=== PATIENT | female | born 1985 | race Caucasian/White ===

== ENCOUNTER 2021-08-18 13:56 | Outpatient (CLI) | payer BC ==
[2021-08-18 15:18] LABS: Hemoglobin 11.9 g/dL (12.0-15.5); Mean Corpuscular HGB CONC 31.6 g/dL (32.0-36.0); Mean Corpuscular Hemoglobin 24.6 pg (27.0-33.0); Mean Corpuscular Volume 77.8 fl (81.6-98.3); Platelet Count 231 10x3/uL (150-450); RBC Distribution Width 14.3 % (11.5-14.5); Red Blood Cell (RBC) Count 4.83 10x6/uL (3.90-5.03); White Blood Cell (WBC) Count 6.4 10x3/uL (3.5-10.5)
[2021-08-18 15:39] LABS: Anion Gap 14 mmol/L (10-20); BUN (Urea Nitrogen) 12 mg/dL (7.0-18.7); Calc. Creatinine Clearance 0 mL/min (70-130); Calcium 9.1 mg/dL (7.8-10.44); Carbon Dioxide 25 mmol/L (22-29); Chloride 104 mmol/L (98-107); Estimated GFR 90; Glucose 108 mg/dL (70-105); Potassium 4.1 mmol/L (3.5-5.1); Sodium 139 mmol/L (136-145)
== END 2021-08-18 13:57 | disposition home or self-care (01) ==
LOC: CSHLAB 13:56
PROVIDERS: ATTEND Podiatrist Foot & Ankle Surgery
DX: Z01.812 Encounter for preprocedural laboratory examination (principal); Z20.822 Contact with and (suspected) exposure to COVID-19; M21.612 Bunion of left foot
CPT/HCPCS: 80048; 85027; 87811

== ENCOUNTER 2021-08-23 10:47 | Day surgery (SDC) | payer BC ==
[2021-08-17 11:39] VITALS: BMI 27.7
[2021-08-23] MEDS ORDERED: Lidocaine 1% MPF 2 ML VIAL ONE (12:15)
[2021-08-23] MEDS ORDERED: Bupivacaine PF 0.5% 30 ML VIAL ONE (13:09)
[2021-08-23] MEDS ORDERED: Neomycin-Polymyxin 1 ML AMP ONE (13:09)
[2021-08-23] MEDS ORDERED: Dexmedetomidine 200 MCG/2 ML VIAL ONE (13:27)
[2021-08-23] MEDS ORDERED: CEFAZOLIN 2 GM VIAL ONE (13:31)
[2021-08-23] MEDS ORDERED: PROPOFOL 20 ML ONE ×2 (13:45→13:54)
[2021-08-23] MEDS ORDERED: Fentanyl 100 MCG/2 ML VIAL ONE (13:45)
[2021-08-23] MEDS ORDERED: Glycopyrrolate 0.2 MG/ML 5 ML SYRINGE ONE (13:57)
[2021-08-23] MEDS ORDERED: ePHEDrine Sulfate 50 MG/10 ML VIAL ONE (14:29)
[2021-08-23] MEDS ORDERED: Ketorolac Tromethamine 30 MG/ML VIAL ONE (14:36)
[2021-08-23] MEDS ORDERED: PHENYLEPHRINE-NS 100 MCG/ML 10 ML SYRINGE ONE (14:42)
== END 2021-08-23 16:15 | disposition home or self-care (01) ==
LOC: CSHSDC 10:47
PROVIDERS: ATTEND Podiatrist Foot & Ankle Surgery
PROC: 0QBR0ZZ Excision of Left Toe Phalanx, Open Approach (ICD-10-PCS; principal; 2021-08-23)
PROC: 0QBP0ZZ Excision of Left Metatarsal, Open Approach (ICD-10-PCS; principal; 2021-08-23)
DX: M21.612 Bunion of left foot (principal); M20.12 Hallux valgus (acquired), left foot; E11.9 Type 2 diabetes mellitus without complications; K21.9 Gastro-esophageal reflux disease without esophagitis; E78.5 Hyperlipidemia, unspecified; Z79.84 Long term (current) use of oral hypoglycemic drugs; Z79.899 Other long term (current) drug therapy
CPT/HCPCS: C1713; J0690; J1885; J2704; J3010; S0020